=== PATIENT | female | born 1950 | race Two or more races ===

== ENCOUNTER 2024-02-18 05:15 | Day surgery (SDC) | payer OTHER ==
[~2024-02-18 05:15] MED LIST: ACTEMRA80 MG/4 ML IV; COZAAR50 MG PO; CYMBALTA30 MG PO; ZETIA10 MG PO; ZOCOR20 MG PO
[2024-02-18] MEDS ORDERED: IBU600 MG PO (08:08)
[2024-02-18] MEDS ORDERED: POVIDONE-IODINE 118 ML BOTT TOP ONE (09:30)
[2024-02-18] MEDS ORDERED: INSULIN REGULAR, HUMAN 1,000 UNIT/10 ML UNITS SUBCUTANEO ONE (09:30)
== END 2024-02-18 13:20 | disposition home or self-care (01) ==
LOC: CIR.AMB 05:15
PROVIDERS: ATTEND Obstetrics & Gynecology Gynecology
DX: C54.1 Malignant neoplasm of endometrium (principal); N95.0 Postmenopausal bleeding

== ENCOUNTER 2024-05-02 09:30 | Inpatient (IN) | payer OTHER ==
[~2024-05-02] VITALS: Ht 61 cm; Wt 74.4 kg
[~2024-05-02 09:30] MED LIST changes: +IBU600 MG PO
[2024-05-02 11:23] VITALS: BP 178/83
[2024-05-02] MEDS ORDERED: OMEPRAZOLE-BIC1 EAC1 PO (11:35)
[2024-05-02] MEDS ORDERED: TRIJARDY XR 101 EACH PO (11:35)
[2024-05-02] MEDS ORDERED: LANTUS SOL100 UNIT/1 (11:36)
[2024-05-02] MEDS ORDERED: ALEVE ARTHRITI100 GM TP (11:38)
[2024-05-02 11:49] LABS: INR 0.99; PROTHROMBIN TIME 10.8 SECONDS (9.0-11.5)
[2024-05-02 13:19] LABS: RH POSITIVE
[2024-05-15] MEDS ORDERED: METRONIDAZOLE/SODIUM CHLORIDE 500 MG/100 ML PIGGYBACK IV ONE (14:45)
[2024-05-15] MEDS ORDERED: CEFAZOLIN SODIUM 1,000 MG VIAL IV ONE (14:45)
[2024-05-15] MEDS ORDERED: POVIDONE-IODINE 118 ML BOTT TOP ONE (14:45)
[2024-05-15] MEDS ORDERED: DEXTROSE 50 % IN WATER 0.5 G/ML DISP.SYRIN IV PRN (15:15)
[2024-05-15] MEDS ORDERED: ENALAPRILAT DIHYDRATE 1.25 MG/ML VIAL IV PRN (15:15)
[2024-05-15] MEDS ORDERED: HEMOSTATIC MATRIX 1 KIT KIT TOP ONE (15:15)
[2024-05-15] MEDS ORDERED: INSULIN LISPRO 1,000 UNIT/10 ML UNITS SUBCUTANEO PRN (15:15)
[2024-05-15] MEDS ORDERED: SURGIFLO APPLICATOR 1 EACH APPL TOP ONE (15:15)
[2024-05-15] MEDS ORDERED: HEMOSTATIC MATRIX WITH THROMBIN KIT TOP ONE (15:18)
[2024-05-15] MEDS ORDERED: SUGAMMADEX SODIUM 200 MG/2 ML VIAL IV ONE (15:49)
[2024-05-15] MEDS ORDERED: KETOROLAC TROMETHAMINE 30 MG VIAL IV NR (16:00)
[2024-05-15] MEDS ORDERED: MORPHINE SULFATE 4 MG/ML CARTRIDGE IV PRN (16:00)
[2024-05-15] MEDS ORDERED: RINGERS SOLUTION,LACTATED 1,000 ML IV SCH (16:00)
[2024-05-15] MEDS ORDERED: METOCLOPRAMIDE HCL 5 MG/ML VIAL IV SCH (17:00)
[2024-05-15] MEDS ORDERED: CEFAZOLIN SODIUM 1,000 MG VIAL IV SCH (17:00)
[2024-05-15] MEDS ORDERED: SIMETHICONE 125 MG CAPSULE PO SCH (17:00)
[2024-05-15] MEDS ORDERED: ACETAMINOPHEN 500 MG GEL..CAP PO SCH (18:00)
[2024-05-15] MEDS ORDERED: SIMETHICONE 125 MG CAPSULE PO ONE (20:34)
[2024-05-15] MEDS ORDERED: GABAPENTIN 300 MG CAPSULE PO ONE (20:34)
[2024-05-15] MEDS ORDERED: FAMOTIDINE/PF 20 MG/2 ML VIAL ONE (20:35)
[2024-05-15] MEDS ORDERED: CELECOXIB 200 MG CAPSULE PO ONE (20:35)
[2024-05-15] MEDS ORDERED: FAMOTIDINE/PF 20 MG/2 ML VIAL IV PUSH SCH (21:00)
[2024-05-15] MEDS ORDERED: DOCUSATE SODIUM 100MG CAP PO SCH (21:00)
[2024-05-15] MEDS ORDERED: CELECOXIB 200 MG CAPSULE PO SCH (21:00)
[2024-05-15] MEDS ORDERED: GABAPENTIN 300 MG CAPSULE PO SCH (21:00)
[2024-05-15 22:05] LABS: HEMATOCRIT 36.5 % (36.0-45.00); HEMOGLOBIN 12.5 g/dL (12.0-15.00); MEAN CELL VOLUME 91.4 fL (80.00-100.00); MEAN CORPUSCULAR HEMOGLOBIN 31.2 pg (27.00-32.0); MEAN CORPUSCULAR HGB CONC 34.1 g/dl (32.0-36.0); PLATELET COUNT 233 K/uL (150-450); RED BLOOD COUNT 3.99 M/uL (4.00-6.00)
[2024-05-15 22:12] VITALS: BP 114/62; O2SAT 96
[2024-05-15 22:29] LABS: ALBUMIN 3.3 gm/dL (3.4-5.0); CALCIUM 8.9 mg/dL (8.5-10.1); CREATININE SERUM 0.79 mg/dL (0.55-1.02); GFR 71.54; PHOSPHOROUS 5.4 mg/dL (2.5-4.9); POTASSIUM 4.74 mEq/L (3.5-5.1)
[2024-05-16 00:53] VITALS: BP 126/60; O2SAT 95
[2024-05-16 06:59] LABS: HEMOGLOBIN 11.7 g/dL (12.0-15.00); MEAN CELL VOLUME 92.6 fL (80.00-100.00); MEAN CORPUSCULAR HEMOGLOBIN 31.9 pg (27.00-32.0); MEAN CORPUSCULAR HGB CONC 34.4 g/dl (32.0-36.0); PLATELET COUNT 207 K/uL (150-450); RED BLOOD COUNT 3.68 M/uL (4.00-6.00); RED CELL DISTRIBUTION WIDTH 12.9 % (11.5-14.5)
[2024-05-16 07:36] LABS: ALBUMIN 2.8 gm/dL (3.4-5.0); CALCIUM 8.1 mg/dL (8.5-10.1); CREATININE SERUM 0.82 mg/dL (0.55-1.02); GFR 68.53; PHOSPHOROUS 4.1 mg/dL (2.5-4.9); POTASSIUM 3.67 mEq/L (3.5-5.1)
[2024-05-16] MEDS ORDERED: LOSARTAN POTASSIUM 50 MG TABLET PO SCH (09:00)
[2024-05-16] MEDS ORDERED: ENOXAPARIN SODIUM 40 MG/0.4 ML SYRINGE SUBCUTANEO SCH (09:00)
[2024-05-16] MEDS ORDERED: HEMOSTATIC MATRIX WITH THROMBIN KIT TOP ONE (15:45)
[2024-05-16] MEDS ORDERED: SUGAMMADEX SODIUM 200 MG/2 ML VIAL IV ONE (16:00)
[2024-05-16] MEDS ORDERED: SURGIFLO APPLICATOR 1 EACH APPL TOP ONE (16:00)
== END 2024-05-16 11:02 | disposition home or self-care (01) | DRG 741 ==
LOC: O/R 05-15 06:10 → SURH 05-15 09:30 → O/R 05-15 19:55 → SURG 05-15 20:02 → SURH 05-15 20:25
PROVIDERS: Obstetrics & Gynecology; ADMIT Obstetrics & Gynecology Gynecologic Oncology; ATTEND Obstetrics & Gynecology Gynecologic Oncology
PROC: 0UT74ZZ Resection of Bilateral Fallopian Tubes, Percutaneous Endoscopic Approach (ICD-10-PCS; 2024-05-15)
PROC: 0UT24ZZ Resection of Bilateral Ovaries, Percutaneous Endoscopic Approach (ICD-10-PCS; 2024-05-15)
PROC: 07BC4ZZ Excision of Pelvis Lymphatic, Percutaneous Endoscopic Approach (ICD-10-PCS; 2024-05-15)
PROC: 0UT94ZZ Resection of Uterus, Percutaneous Endoscopic Approach (ICD-10-PCS; principal; 2024-05-15 17:00)
DX: C54.1 Malignant neoplasm of endometrium (principal); Z20.822 Contact with and (suspected) exposure to COVID-19